=== PATIENT | male | born 1990 | race Caucasian/White ===

== ENCOUNTER 2016-06-06 17:34 | Emergency (ER) | payer OTHER | END 2016-06-06 19:10 | disposition left against medical advice (07) | LOC: UCCORT 17:34 | DX: R50.9 Fever, unspecified (principal); Z53.29 Procedure and treatment not carried out because of patient's decision for other reasons ==

== ENCOUNTER 2016-08-22 09:40 | Emergency (ER) | payer OTHER ==
[2016-08-22 11:06] VITALS: BP 100/45
[2016-08-22] MEDS ORDERED: Acetaminophen TAB* 325 MG PO ONE (11:08)
--- NOTE | 2016-08-22 11:45 | UC ---
FLU HPI - HPI Summary HPI Summary: YESTERDAY HAD HEADACHE FEVER BODY ACHES SORE THROAT. NO FLU SHOT THIS YEAR. 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 Severity Currently: Moderate Severity Initially: Moderate Associated Signs & Symptoms: Positive: Fever, F/C, Myalgia, Cough, Sore Throat, Headache Related Hx: Possible Flu/Infectious Exposure - Allergy/Home Medications Allergies/Adverse Reactions: Allergies Allergy/AdvReac Type Severity Reaction Status Date / Time Pollen Extract Allergy Congestion Verified 08/22/16 10:57 Home Medications: Home Medications Acetaminophen 1,000 mg PO ONCE PRN 08/22/16 [History Confirmed 08/22/16] Ibuprofen TAB* [Advil TAB*] 1,200 mg PO ONCE PRN 08/22/16 [History Confirmed ] PMH/Surg Hx/FS Hx/Imm Hx Previously Healthy: Yes Cardiovascular History Of: Reports: Cardiac Disorders - pericarditis in May GI/ History Of: Reports: Ulcer - peptic - Surgical History Surgical History: Yes Surgery Procedure, Year, and Place: T&A - Family History Known Family History: Positive: Respiratory Disease - Social History Occupation: Employed Full-time Lives: With Family Alcohol Use: None Substance Use Type: Cocaine, Heroin, Marijuana Substance Use Comment - Amount & Last Used: occasional use- but not since May- on probation Smoking Status (MU): Former Smoker Type: Cigarettes Amount Used/How Often: 1/2 pack daily Have You Smoked in the Last Year: Yes When Did the Patient Quit Smoking/Using Tobacco: May 2015 Household Exposure Type: Cigarettes - Immunization History Most Recent Tetanus Shot: unknown Review of Systems Constitutional: Fever, Chills, Fatigue Skin: Negative Eyes: Negative ENT: Sore Throat, Nasal Discharge Respiratory: Cough Cardiovascular: Negative Gastrointestinal: Negative Genitourinary: Negative Motor: Negative Neurovascular: Negative Musculoskeletal: Myalgia Neurological: Negative Psychological: Negative All Other Systems Reviewed And Are Negative: Yes Physical Exam Triage Information Reviewed: Yes Appearance: No Pain Distress, Well-Nourished, Ill-Appearing Vital Signs: Initial Vital Signs Temp 100 F 08/22/16 11:00 Pulse 100 08/22/16 11:00 Resp 16 08/22/16 11:00 BP 100/45 08/22/16 11:00 Pulse Ox 99 08/22/16 11:00 Vital Signs Reviewed: Yes Eye Exam: Normal ENT Exam: Normal ENT: Positive: Normal ENT inspection, Hearing grossly normal, Pharynx normal, TMs normal Dental Exam: Normal Neck exam: Normal Neck: Positive: Supple, Nontender, No Lymphadenopathy Respiratory Exam: Normal Respiratory: Positive: Chest non-tender, Lungs clear, Normal breath sounds, No respiratory distress, No accessory muscle use Cardiovascular Exam: Normal Cardiovascular: Positive: RRR, No Murmur, Pulses Normal Abdominal Exam: Normal Musculoskeletal Exam: Normal Musculoskeletal: Positive: Strength Intact, ROM Intact Neurological Exam: Normal Psychological Exam: Normal Psychological: Positive: Normal Response To Family Skin Exam: Normal Flu Course/Dx - Differential Dx/Diagnosis Differential Diagnosis/HQI/PQRI: RSV, Upper Respiratory Infection Provider Diagnoses: INFLUENZA Discharge - Discharge Plan Condition: Stable Disposition: HOME Prescriptions: Oseltamivir CAP* [Tamiflu CAP*] 75 mg PO BID #10 cap Patient Education Materials: Influenza (ED) Forms: *Work Release Referrals: Bryan Graves DO [Primary Care Provider] -
== END 2016-08-22 11:54 | disposition home or self-care (01) ==
LOC: UCCORT 09:40
DX: J11.1 Influenza due to unidentified influenza virus with other respiratory manifestations (principal); Z87.891 Personal history of nicotine dependence
CPT/HCPCS: 87502; 99212; A9270-GY; G0463

== ENCOUNTER 2017-03-03 08:23 | Emergency (ER) | payer OTHER ==
[2017-03-03 08:44] VITALS: BP 137/76
--- NOTE | 2017-03-03 09:07 | UC ---
Respiratory Complaint HPI - HPI Summary HPI Summary: cough x 7 days + chest congestion , productive cough , yellow sputum chest tightness and pain with coughing ,, + runny nose, pnd fever and chills - History of Current Complaint Chief Complaint: UCRespiratory Stated Complaint: STUFFY RUNNY NOSE COUGH SORE THROAT Time Seen by Provider: 03/03/17 08:51 Hx Obtained From: Patient Onset/Duration: Gradual Onset, Lasting Weeks - 1, Still Present Timing: Constant Severity Initially: Moderate Severity Currently: Moderate Character: Cough: Productive - yellow Aggravating Factors: Exertion, Deep Breaths Alleviating Factors: Nothing Associated Signs And Symptoms: Positive: Fever, Chills, Pleuritic Chest Pain, URI, Nasal Congestion. Negative: Dyspnea, Wheezing, Calf Pain - Allergies/Home Medications Allergies/Adverse Reactions: Allergies Allergy/AdvReac Type Severity Reaction Status Date / Time Pollen Extract Allergy Congestion Verified 03/03/17 08:37 Home Medications: Home Medications [id number] [Vicks Dayquil/Nyquil Frida] 1 liq PO BID PRN 05/19 [History Confirmed 03/03/17] PMH/Surg Hx/FS Hx/Imm Hx - Additional Past Medical History Additional PMH: pericarditis - Surgical History Surgical History: Yes Surgery Procedure, Year, and Place: T&A - Family History Known Family History: Positive: None, Respiratory Disease - Social History Alcohol Use: None Substance Use Type: None Substance Use Comment - Amount & Last Used: denies Smoking Status (MU): Light Every Day Tobacco Smoker Type: Cigarettes Amount Used/How Often: 2-3 Have You Smoked in the Last Year: Yes When Did the Patient Quit Smoking/Using Tobacco: May 2015 Household Exposure Type: Cigarettes - Immunization History Most Recent Influenza Vaccination: not this season Most Recent Tetanus Shot: unknown Review of Systems Constitutional: Fever, Chills, Fatigue Skin: Negative Eyes: Negative ENT: Nasal Discharge Respiratory: Negative Cardiovascular: Negative Gastrointestinal: Negative Genitourinary: Negative Motor: Negative Is Patient Immunocompromised?: No All Other Systems Reviewed And Are Negative: Yes Physical Exam Triage Information Reviewed: Yes Appearance: Well-Appearing, No Pain Distress, Well-Nourished Vital Signs: Initial Vital Signs Temp 100.6 F 03/03/17 08:39 Pulse 81 03/03/17 08:39 Resp 18 03/03/17 08:39 BP 137/76 03/03/17 08:39 Pulse Ox 99 03/03/17 08:39 Vital Signs Reviewed: Yes Eyes: Positive: Conjunctiva Clear ENT: Positive: Normal ENT inspection, Hearing grossly normal, Pharynx normal, Nasal congestion, Nasal drainage Neck: Positive: Supple, Nontender, No Lymphadenopathy Respiratory: Positive: Chest non-tender, Lungs clear, Normal breath sounds Cardiovascular: Positive: RRR, No Murmur, Pulses Normal Skin Exam: Normal UC Diagnostic Evaluation - Laboratory O2 Sat by Pulse Oximetry: 99 Respiratory Course/Dx - Differential Dx/Diagnosis Provider Diagnoses: Bronchitis Discharge - Discharge Plan Condition: Stable Disposition: HOME Prescriptions: Azithromycin TAB* [Zithromax TAB (Z-JO ANN) 250 mg #6 tabs] 2 tab PO .TODAY, THEN 1 DAILY #1 jo ann Guaifenesin-Codeine [Cheratussin AC] 10 ml PO Q8H PRN #100 ml MDD 30 ML PRN Reason: Cough Patient Education Materials: Acute Bronchitis (ED) Forms: *School Release Referrals: Bryan Graves DO [Primary Care Provider] - 7 Days
== END 2017-03-03 09:15 | disposition home or self-care (01) ==
LOC: UCCORT 08:23
DX: J40 Bronchitis, not specified as acute or chronic (principal); J30.1 Allergic rhinitis due to pollen; F17.210 Nicotine dependence, cigarettes, uncomplicated
CPT/HCPCS: 99212; G0463

== ENCOUNTER 2018-01-03 17:09 | Emergency (ER) | payer OTHER ==
--- OUTSIDE RECORDS SUMMARY | 2018-01-03 17:18 | XMS REPORT ---
:1990 External Reference #:[id number] Author Organization [facility] Address [address], [address] [place] [address] Phone [phone] Care Team Providers Name Role Phone Beulah Puente MD, PHD Care Team Information Automotive Consultant Unavailable Beulah Puente MD, PHD Primary Care Physician Unavailable Payers Type Date Identification Numbers Payment Provider Subscriber Commercial Policy Number: [id number] Neftali Ross PayID: [id number] [address] [address] [place] [address] Problems Date Description Provider Status Onset: 08/19/2017 Electrocardiogram abnormal Beulah Puente MD, PHD Active Onset: 08/19/2017 Acute hypokalemia Beulah Puente MD, PHD Active Onset: 08/19/2017 Malaise and fatigue Beulah Puente MD, PHD Active Onset: 08/20/2017 Acute pericarditis, unspecified Alvin Adames Active MN[place], [facility] Onset: 08/19/2017 Adjustment disorder with anxious Beulah Puente MD, PHD Active mood Onset: 08/19/2017 Dysthymic disorder Beulah Puente MD, PHD Active Onset: 08/19/2017 Vitamin D deficiency Beulah Puente MD, PHD Active Onset: 09/29/2017 Low back pain Beulah Puente MD, PHD Active Onset: 09/29/2017 Beulah Puente MD, PHD Active Onset: 10/13/2017 Substance abuse counseling Beulah Puente MD, PHD Active Onset: 10/13/2017 Sciatica Beulah Puente MD, PHD Active Onset: 10/26/2017 Cellulitis of left upper limb Beulah Puente MD, PHD Active Onset: 10/26/2017 Elevated blood-pressure reading Beulah Puente MD, PHD Active without diagnosis of hypertension Onset: 10/26/2017 Smokes tobacco daily Beulah Puente MD, PHD Active Onset: 10/26/2017 Tachycardia Beulah Puente MD, PHD Active Onset: 10/26/2017 Immunization Beulah Puente MD, PHD Active Onset: 12/27/2017 Cellulitis Beulah Puente MD, PHD Active Onset: 12/27/2017 Methicillin resistant Beulah Puente MD, PHD Active Staphylococcus aureus Family History Date Family Member(s) Problem(s) Comments Father No Current Problems Mother No Current Problems Maternal grandmother with ischemic cardiomyopathy and ICD (Gary Ross). Social History Type Date Description Comments Lives With Mother Diet Patient follows no dietary restrictions Occupation Currently Working ADL's/IADL's Independent with all ADL's Cigarette Use currently smokes 1/2 Pack Daily ETOH Use Denies alcohol use Recreational Drug Use HX Of Drug Or Alcohol Abuse PT WOULD NOT CLARIFY Smoking Light tobacco smoker (10 or fewer cigarettes/day) Daily Caffeine Current Caffeine User Allergies, Adverse Reactions, Alerts Date Description Reaction Status Severity Comments 05/21/2016 Pollen active Medications Medication Date Status Form Strength Qnty SIG Indications Ordering Provider Sulfamethoxazole/ 12/27/ Active Tablets 800-160mg 14tab 1 tab by L03.90 Rosa Puente 2017 s mouth Beulah, twice a , PHD day after meals Hibiclens 12/27/ Active Liquid 4% 750ml use on Z86.14 2017 all skin Beulah, as body , PHD wash once and as needed. Nicotrol NS 10/26/ Active Solution 10mg/ml 40ml 1 every 4 Z72.0 2017 hours as Beulah, needed , PHD Trazodone HCL 10/26/ Active Tablets 100mg 30tab 1 tab by F43.22 2017 s mouth at Beulah, bedtime , PHD as needed for sleep Hydrocodone-Aceta 10/26/ Active Tablets 7.5-325mg 5tabs 1 tab by M54.42 Kwame, minophen 2018 mouth at Beulah, bedtime MD, PHD as needed for pain Cyclobenzaprine 09/29/ Active Tablets 5mg 30tab 1-2 tab M46.40 Kwame, HCL 2018 s by mouth Beulah, at MD, PHD bedtime as needed for muscle Zantac 150 09/29/ Active Tablets 150mg 60tab 1 tab by M54.5 Kwame, Maximum Strength 2017 s mouth Beulah, twice a MD, PHD day as needed with the Naproxen to protect stomach Potassium 08/20/ Active Tablets ER 20Meq 30tab 1 pill David[place] Chloride ER 2018 s twice a , if Ángel Chawla, needed FACC for weakness. Isle-3 CF 08/19/ Active Capsules 1000mg 60cap 1 cap by F43.22 Kwame, 2018 s mouth Beulah, twice a MD, PHD day with meals D3 Maximum 08/19/ Active Capsules 5000Unit 90cap 1 cap by F43.22 Kwame , Strength 2017 s mouth Beulah, every day MD, PHD with food B12 Fast Dissolve 08/19/ Active Tablets 5000mcg 90tab 1 tab by F43.22 Kwame, 2018 Dispers s mouth Beulah, every day , PHD Cephalexin 10/26/ Hx Tablets 500mg 14tab 1 tab by L03.114 Kwame, 2017 - s mouth Beulah, 12/27/ twice a MD, PHD 2017 day Mobic 10/13/ Hx Tablets 15mg 14tab 1 by M54.5 Kwame, 2018 - s mouth Beulah, 10/26/ once a MD, PHD 2017 day Naprosyn 09/29/ Hx Tablets 500mg 30tab one by M54.5 Kwame, 2018 - s mouth Beulah, 10/13/ twice a MD, PHD 2017 day as needed No Active 08/19/ Hx Unknown Medications 2017 - 2017 Nac 600 08/19/ Hx Capsules 600mg 90cap 1 cap by F43.22 Kwame, 2018 s mouth Beulah, every day , PHD Chromium 08/19/ Hx Tablets 1000mcg 90tab 1 tab by F43.22 Kwame, 2018 s mouth Beulah, every day MD, PHD every morning Trazodone HCL 08/19/ Hx Tablets 50mg 60tab 1-2 tab F34.1 Kwame 2018 - s by mouth Beulah, 10/26/ at , PHD 2018 bedtime as needed for sleep. Indomethacin / Hx Capsules 50mg 1 po bid Unknown 0000 - 2017 Vital Signs Date Vital Result Comment 12/29/2017 BP Systolic 125 mmHg BP Diastolic 84 mmHg Body Temperature 99.4 F Heart Rate 87 /min Respiratory Rate 20 /min Height 73 inches 6'1" Weight 225.00 lb BMI (Body Mass Index) 29.7 kg/m2 BSA (Body Surface Area) 2.26 m2 [place] body weight in kilograms 83 O2 % BldC Oximetry 97 % 12/27/2017 BP Systolic 155 mmHg BP Diastolic 94 mmHg Body Temperature 98.8 F Heart Rate 69 /min Respiratory Rate 18 /min Height 73 inches 6'1" Weight 225.00 lb BMI (Body Mass Index) 29.7 kg/m2 BSA (Body Surface Area) 2.26 m2 [place] body weight in kilograms 83 O2 % BldC Oximetry 97 % 10/26/2017 BP Systolic 147 mmHg BP Diastolic 96 mmHg Body Temperature 107.0 F Heart Rate 107 /min Respiratory Rate 20 /min Height 73 inches 6'1" Weight 223.00 lb BMI (Body Mass Index) 29.4 kg/m2 BSA (Body Surface Area) 2.25 m2 [place] body weight in kilograms 83 O2 % BldC Oximetry 96 % 10/13/2017 BP Systolic 147 mmHg BP Diastolic 102 mmHg Body Temperature 99.0 F Heart Rate 122 /min Respiratory Rate 96 /min Height 73 inches 6'1" Weight 223.12 lb BMI (Body Mass Index) 29.4 kg/m2 BSA (Body Surface Area) 2.25 m2 [place] body weight in kilograms 83 O2 % BldC Oximetry 96 % 09/29/2017 BP Systolic 144 mmHg BP Diastolic 88 mmHg Body Temperature 98.6 F Heart Rate 96 /min Respiratory Rate 20 /min Height 73 inches 6'1" Weight 223.38 lb BMI (Body Mass Index) 29.5 kg/m2 BSA (Body Surface Area) 2.26 m2 [place] body weight in kilograms 83 O2 % BldC Oximetry 95 % 08/20/2017 BP Systolic Sitting Right Arm 128 mmHg BP Diastolic Sitting Right Arm 82 mmHg Heart Rate 76 /min Respiratory Rate 18 /min Weight 235.00 lb 08/19/2017 BP Systolic Lying Down Resting Right Arm 128 mmHg BP Diastolic Lying Down Resting Right Arm 85 mmHg Body Temperature 98.3 F Heart Rate 91 /min Respiratory Rate 18 /min Height 73 inches 6'1" Weight 232.50 lb BMI (Body Mass Index) 30.7 kg/m2 BSA (Body Surface Area) 2.29 m2 [place] body weight in kilograms 83 05/21/2016 BP Systolic Sitting Right Arm 117 mmHg BP Diastolic Sitting Right Arm 84 mmHg Heart Rate 57 /min Respiratory Rate 16 /min Height 72 inches 6'0" Weight 195.00 lb BMI (Body Mass Index) 26.4 kg/m2 BSA (Body Surface Area) 2.11 m2 [place] body weight in kilograms 81 Results Test Date Test Result H/L Range Note CBS W/Automated Diff 10/26/2017 White Blood Count 10.1 K/uL 3.4-10.5 1 Red Blood Count 5.11 M/uL 4.20-5.80 1 Hemoglobin 16.5 gm/dL 12.8-17.0 1 Hematocrit 46.5 % 38.0-48.0 1 Mean Cell Volume 91.0 fl 80.0-96.0 1 Mean Corpuscular HGB 32.3 pg 27.0-33.0 1 Mean Corpuscular HGB Conc 35.5 g/dL 31.7-36.0 1 Platelet Count 152 K/uL Low 155-360 1 Red Cell Distri Width SD 41.5 fl 36-51 1 Red Cell Distri Width %CV 12.8 % 11.6-15.8 1 Mean Platelet Volume 10.9 fL High 6.6-10.6 1 Neut% 70.4 % 33.0-73.0 1 Lymph % 20.0 % 20.0-42.0 1 [place] % 8.7 % 0.0-10.0 1 Eo% 0.8 % 0.0-6.6 1 Bas% 0.1 % 0.0-1.1 1 Neut# 7.14 K/uL High 1.8-7.0 1 Lymph # 2.03 K/uL 1.0-4.0 1 [place] # 0.88 K/uL High 0.0-0.8 1 Eos # 0.08 K/uL 0.0-0.5 1 Baso # 0.01 K/uL 0.0-0.1 1 Comprehensive Metabolic Panel 10/26/2017 Glucose 148 mg/dL High 74-106 1 BUN 16 mg/dL 7-18 1 Creatinine 1.0 mg/dL 0.6-1.3 1 Glom Filtration Rate, Estimate >60 mL/min >60 1 If >60 mL/min >60 1, 2 BUN/Creat 16.0 ratio 1 Sodium 139 mmol/L 136-145 1 Potassium 3.8 mmol/L 3.5-5.1 1 Chloride 104 mmol/L 98-107 1 Carbon Dioxide 25 mmol/L 21-32 1 Anion Gap 10 mEq/L 8-16 1 Calcium 8.5 mg/dL 8.5-10.1 1 Total Protein 7.8 g/dL 6.4-8.2 1 Albumin 3.9 g/dL 3.4-5.0 1 Globulin 3.9 g/dL 1.9-4.3 1 Alb/Glob 1.0 ratio 1 Bilirubin,Total 0.3 mg/dL 0.2-1.0 1 Sgot/Ast 13 U/L Low 15-37 1, 3 SGPT/Alt 28 U/L 12-78 1 Alkaline Phosphatase 59 U/L 45-117 1 Glycohemoglobin A1c 10/26/2017 Glycohemoglobin (A1c) 5.4 % 4.2-6.3 1, 4 eAG 108 mg/dL 1 Lyme Igm (Reflex 10/26/2017 Lyme Disease < 0.80 index 0.00-0.79 1, 5 Western Blot) Antibody,QT,Igm Laboratory test 10/26/2017 Treponema Antibody Negative Negative 1, 6 finding [place] NT-proBNP 9.0 pg/mL <125 1 D-Dimer, Quantitative < 0.27 ug/mL 1, 7 Slide Review 10/26/2017 Slide Review . 1 Basic Metabolic Panel 08/20/2017 Glucose 135 mg/dL High 74-106 8 BUN 9 mg/dL 7-18 8 Creatinine 1.1 mg/dL 0.6-1.3 8 Glom Filtration Rate, Estimate >60 mL/min >60 8 If >60 mL/min >60 8, 9 BUN/Creat 8.1 ratio 8 Sodium 135 mmol/L Low 136-145 8 Potassium 4.8 mmol/L 3.5-5.1 8 Chloride 101 mmol/L 98-107 8 Carbon Dioxide 27 mmol/L 21-32 8 Anion Gap 7 mEq/L Low 8-16 8 Calcium 9.1 mg/dL 8.5-10.1 8 Blood monocytes 08/17/2017 Blood monocytes 0.82 High 0.0-0.8 automated count automated count (number/volume) (number/volume) Chloride SerPl-sCnc 08/17/2017 [facility]loride [facility] 112 High 98-107 Blood leukocytes 08/17/2017 Blood leukocytes 7.8 3.4-10.5 automated count automated count (number/volume) (number/volume) Blood hemoglobin 08/17/2017 Blood hemoglobin 15.2 12.8-17.0 measurement measurement (mass/volume) (mass/volume) Blood erythrocytes 08/17/2017 Blood erythrocytes 4.71 4.20-5.80 automated count automated count (number/volume) (number/volume) Eosinophil/leuk NFr 08/17/2017 Eosinophil/leuk NFr 1.8 0.0-6.6 Bld Auto Bld Auto Lymphocytes/leuk NFr 08/17/2017 Lymphocytes/leuk 30.0 20.0-42.0 Bld Auto NFr Bld Auto Monocytes/leuk NFr 08/17/2017 Monocytes/leuk NFr 10.5 High 0.0-10.0 Bld Auto Bld Auto Neutrophils # Bld 08/17/2017 Neutrophils # Bld 4.47 1.8-7.0 Auto Auto Neutrophils/leuk NFr 08/17/2017 Neutrophils/leuk 57.3 33.0-73.0 Bld Auto NFr Bld Auto Potassium [facility] 08/17/2017 Potassium 4.8 3.5-5.1 [facility] RDW RBC Auto 08/17/2017 RDW RBC Auto 45.0 36-51 RDW RBC Auto-Rto 08/17/2017 RDW RBC Auto-Rto 13.3 11.6-15.8 Serum carbon dioxide 08/17/2017 Serum carbon 25 21-32 measurement dioxide measurement Serum or plasma 08/17/2017 Serum or plasma 8.0 Low 8.5-10.1 calcium measurement calcium measurement (mass/volume) (mass/volume) Serum or plasma 08/17/2017 Serum or plasma 376 High 39-308 creatine kinase creatine kinase measurement (enzym measurement (enzymatic activity/volume) Serum or plasma 08/17/2017 Serum or plasma 0.8 0.6-1.3 creatinine creatinine measurement measurement (mass/volum (mass/volume) Serum or plasma 08/17/2017 Serum or plasma 89 74-106 glucose measurement glucose measurement (mass/volume) (mass/volume) Serum or plasma 08/17/2017 Serum or plasma 0.092 troponin i.cardiac troponin i.cardiac measurement (ma measurement (mass/volume) Serum or plasma urea 08/17/2017 Serum or plasma 6 Low 7-18 nitrogen measurement urea nitrogen (mass/vo measurement (mass/volume) Serum sodium 08/17/2017 Serum sodium 141 136-145 measurement measurement TSH SerPl-aCnc 08/17/2017 TSH SerPl-aCnc 1.13 0.30-4.20 Leukocyte esterase 08/17/2017 Leukocyte esterase Negative Negative Ur Ql Strip.auto Ur Ql Strip.auto Ketones Ur 08/17/2017 Ketones Ur Negative Negative Strip.auto-mCnc Strip.auto-mCnc Color Ur 08/17/2017 Color Ur Yellow Yellow Nitrite Ur Ql 08/17/2017 Nitrite Ur Ql Negative Negative Strip.auto Strip.auto Prot Ur 08/17/2017 Prot Ur Negative Negative Strip.auto-mCnc Strip.auto-mCnc Screening urine 08/17/2017 Screening urine Negative barbiturate barbiturate detection detection Specific gravity of 08/17/2017 Specific gravity of 1.010 1.010-1.030 Urine by Automated Urine by Automated test strip test strip Urine amphetamines 08/17/2017 Urine amphetamines Negative detection by detection by screening method screening method Urine appearance 08/17/2017 Urine appearance Clear Clear determination determination Urine 08/17/2017 Urine Negative benzodiazepines benzodiazepines measurement by measurement by screening met screening method (mass/volume) Urine 08/17/2017 Urine Positive High benzoylecgonine benzoylecgonine detection by detection by screening metho screening method Urine cannabinoids 08/17/2017 Urine cannabinoids Negative detection by detection by screening method screening method Urine drug screen 08/17/2017 Urine drug screen * comment comment interpretation interpretation Urine glucose 08/17/2017 Urine glucose Negative Negative measurement by measurement by automated test strip automated test strip (mass/volume) Urine hemoglobin 08/17/2017 Urine hemoglobin Negative Negative detection by detection by automated test strip automated test strip Urine methadone 08/17/2017 Urine methadone Negative screen screen Urine opiates 08/17/2017 Urine opiates Negative detection by detection by screening method screening method Urine total 08/17/2017 Urine total Negative Negative bilirubin detection bilirubin detection by automated test by automated test strip Basophils/leuk NFr 08/17/2017 Basophils/leuk NFr 0.4 0.0-1.1 Bld Auto Bld Auto BUN/Creat SerPl 08/17/2017 BUN/Creat SerPl 7.5 Automated 08/17/2017 Automated 92.8 80.0-96.0 erythrocyte mean erythrocyte mean corpuscular volume corpuscular volume Automated 08/17/2017 Automated 34.8 31.7-36.0 erythrocyte mean erythrocyte mean corpuscular corpuscular hemoglobin hemoglobin concentration measurement (mass/volume) Automated 08/17/2017 Automated 32.3 27.0-33.0 erythrocyte mean erythrocyte mean corpuscular corpuscular hemoglobin hemoglobin (mass per erythrocyte) Automated blood 08/17/2017 Automated blood 10.5 6.6-10.6 platelet mean volume platelet mean measurement volume measurement Automated blood 08/17/2017 Automated blood 268 155-360 platelet count platelet count Automated blood 08/17/2017 Automated blood 2.34 1.0-4.0 lymphocyte count lymphocyte count (number/volume) (number/volume) Automated blood 08/17/2017 Automated blood 43.7 38.0-48.0 hematocrit (volume hematocrit (volume fraction) fraction) Urobilinogen Ur 08/17/2017 Urobilinogen Ur 0.2 0.2-1.0 Strip-aCnc Strip-aCnc pH Ur Strip.auto 08/17/2017 pH Ur Strip.auto 7.5 6.5-7.5 Aot Request 08/17/2017 Aot Request Test(s) 10, 11 added Tests to be added: TSH with reflex <SEE NOTE> 10, 12 * Miscellaneous studies 08/17/2017 * Miscellaneous studies Test(s) added (set) (set) Anion Gap SerPl-sCnc 08/17/2017 Anion Gap SerPl-sCnc 4 Low 8-16 Automated blood 08/17/2017 Automated blood 0.03 0.0-0.1 basophil count basophil count (count/volume) (count/volume) Automated blood 08/17/2017 Automated blood 0.14 0.0-0.5 eosinophil count eosinophil count Alt SerPl-cCnc 08/16/2017 Alt SerPl-cCnc 52 12-78 Serum or plasma 08/16/2017 Serum or plasma 1.8 1.8-2.4 magnesium measurement magnesium measurement (mass/volume (mass/volume) Serum or plasma total 08/16/2017 Serum or plasma total 0.2 0.2-1.0 bilirubin measurement bilirubin measurement (mass/ (mass/volume) Serum or plasma protein 08/16/2017 Serum or plasma protein 8.2 6.4-8.2 measurement measurement (mass/volume) (mass/volume) Serum or plasma 08/16/2017 Serum or plasma 28 15-37 aspartate aspartate aminotransferase aminotransferase measure measurement (enzymatic activity/volume) Serum or plasma 08/16/2017 Serum or plasma 48 45-117 alkaline phosphatase alkaline phosphatase measurement ( measurement (enzymatic activity/volume) Serum or plasma albumin 08/16/2017 Serum or plasma albumin 3.5 3.4-5.0 measurement measurement (mass/volume) (mass/volume) Globulin Ser Calc-mCnc 08/16/2017 Globulin Ser Calc-mCnc 4.7 High 1.9-4.3 Albumin/Glob SerPl 08/16/2017 Albumin/Glob SerPl 0.7 1 RO3.O,LO3.114,FRANCO.O 2 Note: Persistent reduction for 3 months or more in an eGFR <60 mL/min/1.73 m2 defines CKD. Patients with eGFR values >/=60 mL/min/1.73 m2 may also have CKD if evidence of persistent proteinuria is present. The original MDRD equation for estimated GFR is not valid for patients less than 18 years of age. Additional information may be found at www.kdoqi.org. 3 Values below the stated reference ranges of AST and ALT can be seen in normal populations. Clinical correlation is suggested. 4 Elevated levels of HbA1c suggest the need for more aggressive treatment of glycemia. The [place] [employer] recommends that a primary goal of therapy should be a HbA1c of <7% and that physicians should re-evaluate the treatment regimen in patients with HbA1c values consistently >8%. 5 Negative <0.80 Equivocal 0.80 - 1.19 Positive >1.19 IgM levels may peak at 3-6 weeks post infection, then gradually decline. Performed at: RN - [facility] [address] [id number] Computer Animator: Tanja Bowers MD, Phone: [phone] 6 Performed at: [facility] [id number] Computer Animator: Hemanth Koroma MD, Phone: [phone] 7 <=0.49 ug/mL - Low likelihood of DIC, DVT or Pulmonary Embolism >0.49 ug/mL - Additional testing should be done to rule out DIC, DVT, or Pulmonary embolism as clinically indicated. ([facility] has established a 97.89% negative predictive value for thrombotic disease when a cutoff value of 0.5 ug/mL is used.) 8 NO DX 9 Note: Persistent reduction for 3 months or more in an eGFR <60 mL/min/1.73 m2 defines CKD. Patients with eGFR values >/=60 mL/min/1.73 m2 may also have CKD if evidence of persistent proteinuria is present. The original MDRD equation for estimated GFR is not valid for patients less than 18 years of age. Additional information may be found at www.kdoqi.org. 10 HYPOKALEMIA EKG CHANGES 11 Tests: TSH with reflex free T3/T4 Instructions: 12 TSH with reflex free T3/T4 Procedures Date CPT Code Description Status 08/20/2017 43851 EKG-Tracing And Report Completed 08/17/2017 57286 Echocardiogram Complete Completed 08/17/2017 18966 EKG Interpretation And Report Only Completed 05/21/2016 88090 EKG-Tracing And Report Completed 04/29/2016 06504 Echocardiogram Complete Completed 06/24/2006 81133 T & A, Age 12 Or Over Completed Encounters Type Date Location Provider CPT E/M Dx Office Visit 12/29/2017 11:45a [place], [address] Z86.14 Women's Health PHD L03.114 Office Visit 12/27/2017 2:00p [place], [address] L03.90 Women's Health PHD Z86.14 Office Visit 10/26/2017 11:30[place], [address] L03.114 Women's Health PHD R03.0 R94.31 F43.22 R00.0 M54.42 Z71.51 Z72.0 Office Visit 10/13/2017 11:45a Family [place], [address] M54.32 Women's Health PHD M54.5 R53.1 E55.9 F34.1 Z71.51 Office Visit 09/29/2017 11:30a Family Medicine [place], [address] M54.5 Women's Health PHD F43.22 Office Visit 08/20/2017 8:20a Cardiology Office Alvin Adames, 32927 R53.1 Ángel, [facility] R94.31 I30.9 Office Visit 08/19/2017 12:30p Family Medicine [place], [address] R94.31 Women's Health PHD R53.1 F43.22 F34.1 R53.83 E55.9 Office Visit 05/21/2016 10:00a Cardiology Office Flores Christyaidan, 18907 I30.9 MSN, [employer] Office Visit 07/02/2006 3:30p Operating Room Kyree Bishop M.D. 24489 474.11 Office Visit 06/29/2006 1:15p Operating Room Kyree Bishop M.D. 79156 998.11 Office Visit 06/18/2006 4:15p Operating Room Kyree Bishop M.D. 93056 474.11 Plan of Care 12/29/2017 - Beulah Puente MD, PHDZ86.14 Personal history of methicillin resis staph [id number] Cellulitis of left upper limbComments:Continue Bactrim DS for 10 daysSoak wound so continuesto drain until healed. use Hibicleans wash as directed. Don't use waterproof bandage, but covering and protecting with nicholas and coban wrap ok.
--- OUTSIDE RECORDS SUMMARY | 2018-01-03 17:19 | XMS REPORT ---
:1990 External Reference #:[id number] Author Organization [facility] Address [address], [address] [place] [address] Phone [phone] Care Team Providers Name Role Phone Beulah Puente MD, PHD Care Team Information Folding Machine Feeder Unavailable Beulah Puente MD, PHD Primary Care Physician Unavailable Payers Type Date Identification Numbers Payment Provider Subscriber Commercial Policy Number: [id number] Neftali Ross PayID: [id number] [address] [address] [place] [address] Problems Date Description Provider Status Onset: 08/19/2017 Electrocardiogram abnormal Beulah Puente MD, PHD Active Onset: 08/19/2017 Acute hypokalemia Beulah Puente MD, PHD Active Onset: 08/19/2017 Malaise and fatigue Beulah Puente MD, PHD Active Onset: 08/20/2017 Acute pericarditis, unspecified Alvin Adames Active [place], [facility] Onset: 08/19/2017 Adjustment disorder with anxious [...] MD, PHD Active Onset: 12/27/2017 Cellulitis Beulah uPente MD, PHD Active Onset: 12/27/2017 Methicillin resistant [...] if Ángel Chawla, needed FACC for weakness. [place]-3 CF 08/19/ Active Capsules 1000mg 60cap 1 [...] 2017 Vital Signs Date Vital Result Comment 12/27/2017 BP Systolic 155 mmHg BP Diastolic 94 mmHg Body Temperature 98.8 F Heart Rate 69 /min Respiratory Rate 18 /min Height 73 inches 6'1" Weight 225.00 lb BMI (Body Mass Index) 29.7 kg/m2 BSA (Body Surface Area) 2.26 m2 [place] body weight in kilograms 83 O2 % BldC Oximetry 97 % 10/26/2017 BP Systolic 147 mmHg BP Diastolic 96 mmHg Body Temperature 107.0 F Heart Rate 107 /min Respiratory Rate 20 /min Height 73 inches 6'1" Weight 223.00 lb BMI (Body Mass Index) 29.4 kg/m2 BSA (Body Surface Area) 2.25 m2 [place] body weight in kilograms 83 O2 % BldC Oximetry 96 % 10/13/2017 BP Systolic 147 mmHg BP Diastolic 102 mmHg Body Temperature 99.0 F Heart Rate 122 /min Respiratory Rate 96 /min Height 73 inches 6'1" Weight 223.12 lb BMI (Body Mass Index) 29.4 kg/m2 BSA (Body Surface Area) 2.25 m2 [place] body weight in kilograms 83 O2 % BldC Oximetry 96 % 09/29/2017 BP Systolic 144 mmHg BP Diastolic 88 mmHg Body Temperature 98.6 F Heart Rate 96 /min Respiratory Rate 20 /min Height 73 inches 6'1" Weight 223.38 lb BMI (Body Mass Index) 29.5 kg/m2 BSA (Body Surface Area) 2.26 m2 [place] body weight in kilograms 83 O2 % [...] kg/m2 BSA (Body Surface Area) 2.29 m2 [place] body weight in kilograms 83 05/21/2016 BP Systolic Sitting Right Arm 117 mmHg BP Diastolic Sitting Right Arm 84 mmHg Heart Rate 57 /min Respiratory Rate 16 /min Height 72 inches 6'0" Weight 195.00 lb BMI (Body Mass Index) 26.4 kg/m2 BSA (Body Surface Area) 2.11 m2 [place] body weight in kilograms 81 Results Test [...] 1 Lymph % 20.0 % 20.0-42.0 1 [place] % 8.7 % 0.0-10.0 1 Eo% 0.8 % 0.0-6.6 1 Bas% 0.1 % 0.0-1.1 1 Neut# 7.14 K/uL High 1.8-7.0 1 Lymph # 2.03 K/uL 1.0-4.0 1 [place] # 0.88 K/uL High 0.0-0.8 1 Eos [...] Treponema Antibody Negative Negative 1, 6 finding [place] NT-proBNP 9.0 pg/mL <125 1 D-Dimer, Quantitative [...] count (number/volume) (number/volume) Chloride SerPl-sCnc 08/17/2017 Chloride SerPl-sCnc 112 High 98-107 Blood leukocytes 08/17/2017 Blood [...] 33.0-73.0 Bld Auto NFr Bld Auto Potassium SerPl-sCnc 08/17/2017 Pot[facility] 4[facility]8 [facility].5[facility] RBC Auto 08/17/2017 RDW RBC Auto [...] for more aggressive treatment of glycemia. The [place] [employer] recommends that a primary goal of therapy should be a HbA1c of <7% and that physicians should re-evaluate the treatment regimen in patients with HbA1c values consistently >8%. 5 Negative <0.80 Equivocal 0.80 - 1.19 Positive >1.19 IgM levels may peak at 3-6 weeks post infection, then gradually decline. Performed at: - [facility] [address] [id number] [employer] Manager: Tanja Bowers MD, Phone: [phone] Performed at: - [facility] [address] [id number] [employer] Development Manager: Hemanth Koroma MD, Phone: [phone] <=0.49 ug/mL - Low likelihood of DIC, DVT or Pulmonary Embolism >0.49 ug/mL - Additional testing should be done to rule out DIC, DVT, or Pulmonary embolism as clinically indicated. ([facility] has established a 97.89% negative predictive value [...] Procedures Date CPT Code Description Status 08/20/2017 53258 EKG-Tracing And Report Completed 08/17/2017 54678 Echocardiogram Complete Completed 08/17/2017 65793 EKG Interpretation And Report Only Completed 05/21/2016 04223 EKG-Tracing And Report Completed 04/29/2016 68662 Echocardiogram Complete Completed 06/24/2006 47729 T & A, Age 12 Or Over Completed Encounters Type Date Location Provider CPT E/M Dx Office Visit 10/26/2017 [place], [address] L03.114 11:30a [facility] PHD R03.0 R94.31 F43.22 R00.0 M54.42 Z71.51 Z72.0 Office Visit 10/13/2017 11:45a [place], [address] M54.32 [facility] PHD M54.5 R53.1 E55.9 F34.1 Z71.51 Office Visit 09/29/2017 11:30a [place], [address] M54.5 [facility] PHD F43.22 Office Visit 08/20/2017 8:20a Cardiology Office Alvin Adames, [address] R53.1 Ángel, [facility] R94.31 I30.9 Office Visit 08/19/2017 12:30p [place], [address] R94.31 [facility] PHD R53.1 F43.22 F34.1 R53.83 E55.9 Office Visit 05/21/2016 10:00a Cardiology Office Flores Christy, 52391 I30.9 MSN, [employer] Office Visit 07/02/2006 3:30p Operating Room Kyree Bishop M.D. 09669 474.11 Office Visit 06/29/2006 1:15p Operating Room Kyree Bishop M.D. 86264 998.11 Office Visit 06/18/2006 4:15p Operating Room Kyree Bishop M.D. 62209 474.11 Plan of Care 12/27/2017 - Beulah Puente MD, PHDL03.90 Cellulitis, unspecifiedNew Medication:Sulfamethoxazole/Trimethoprim DS 800-160 mgFollow up:If pain in joint getting worse or not improving in a few days, call and may need imaging - MRSA can damage joints.Z86.14 Personal history of methicillin resis staph infectionNew Medication:Hibiclens 4 %
[2018-01-03 18:28] VITALS: BP 123/71
[2018-01-03] MEDS ORDERED: Clindamycin CAP* 150 MG PO ONE ×2 (18:56→18:58)
[2018-01-03] MEDS ORDERED: HYDROcodone/ACETAMIN 5-325 MG* 1 TAB PO ONE (18:56)
--- NOTE | 2018-01-03 19:46 | UC ---
Skin Complaint HPI - HPI Summary HPI Summary: 27-year-old male comes in with the complaint of rash. The patient has been on Bactrim for 7 days his last dose was this morning. He was placed on the Bactrim for a left forearm skin abscess that is MRSA positive. There was a rash at the site of the abscess now he has a diffuse rash on his chest arms or legs. No recent fevers. He states that his skin feels tender. His mastoids are tender to palpation. He has had diarrhea for one week. It is worsening over the last few days. No abdominal pain. The rash itches. - History of Current Complaint Chief Complaint: UCSkin Time Seen by Provider: 01/03/18 18:32 Stated Complaint: BILATERAL EAR & SKIN CONCERN Pain Intensity: 6 Pain Scale Used: 0-10 Numeric - Allergy/Home Medications Allergies/Adverse Reactions: Allergies Allergy/AdvReac Type Severity Reaction Status Date / Time MS Pollen Extract Allergy Congestion Verified 01/03/18 18:28 [Pollen Extract] Home Medications: Home Medications Ibuprofen TAB* [Motrin TAB* 600 MG] 600 mg PO ONCE 01/03/18 [History Confirmed 01/03/18] Review of Systems Constitutional: Other Skin: Rash - Diffuse blanching rash Eyes: Negative Respiratory: Negative Cardiovascular: Negative Gastrointestinal: Diarrhea Genitourinary: Negative, Vaginal/Penile Itching Neurovascular: Negative Musculoskeletal: Negative Neurological: Negative Psychological: Negative Is Patient Immunocompromised?: No All Other Systems Reviewed And Are Negative: Yes PMH/Surg Hx/FS Hx/Imm Hx - Additional Past Medical History Additional PMH: POSITIVE MRSA Other Endocrine History: NO DM Other Cardiovascular History: NO HTN - Surgical History Surgical History: Yes Surgery Procedure, Year, and Place: T&A - Family History Known Family History: Positive: Cardiac Disease, Respiratory Disease - Social History Alcohol Use: Rare Substance Use Type: None Substance Use Comment - Amount & Last Used: denies Smoking Status (MU): Light Every Day Tobacco Smoker Type: Cigarettes Amount Used/How Often: 5-6 cig Have You Smoked in the Last Year: Yes When Did the Patient Quit Smoking/Using Tobacco: May 2015 Household Exposure Type: Cigarettes - Immunization History Most Recent Influenza Vaccination: not this season Most Recent Tetanus Shot: unknown Physical Exam Triage Information Reviewed: Yes Appearance: Well-Appearing, No Pain Distress, Well-Nourished Vital Signs: Initial Vital Signs Temp 98.4 F 01/03/18 18:01 Pulse 86 01/03/18 18:01 Resp 16 01/03/18 18:01 BP 123/71 01/03/18 18:01 Pulse Ox 100 01/03/18 18:01 Vital Signs Reviewed: Yes Eye Exam: Normal ENT: Positive: Pharynx normal, Other - BOTH MASTOIDS ARE MILDLY TENDER TO PALPATION. Negative: Tonsillar swelling, Tonsillar exudate Neck: Positive: Supple, Nontender Respiratory: Positive: Chest non-tender, Lungs clear, Normal breath sounds Cardiovascular: Positive: RRR Abdomen Description: Positive: Nontender Musculoskeletal: Positive: Strength Intact, Other: - LEFT FOREARM HEALING SKIN ABSCESS. THERE IS SURROUNDING BLANCHING RASH Neurological Exam: Normal Psychological Exam: Normal Skin: Positive: rashes - DIFFUSE BLANCHING ERYTHEMATOUS RASH Course/Dx - Course Course Of Treatment: The rash may be due to a reaction to Bactrim. Stop taking the Bactrim. The abscess looks largely healed although it is still mildly swollen and minimally tender. Start clindamycin in case the MRSA abscess is still active. Stool sample pending to determine if the diarrhea is C. difficile. If the stool comes back positive C. difficile the patient will need to start on metronidazole. Blood work is pending to check white blood cells hemoglobin and platelets and liver function. We discussed if his condition got worse he is to get reevaluated in the emergency department. The patient is to contact his primary medical doctor tomorrow for follow-up. - Diagnoses Provider Diagnoses: RASH. DIARRHEA. MRSA SKIN ABSCESS Discharge - Sign-Out/Discharge Documenting (check all that apply): Patient Departure All imaging exams completed and their final reports reviewed: No Studies - Discharge Plan Condition: Stable Disposition: HOME Prescriptions: Clindamycin Cap(NF) [Clindamycin Cap 300 mg Cap(NF)] 300 mg PO Q6H #40 cap HYDROcodone/ACETAMIN 5-325 MG* [[place]ming 5-325 TAB*] 1 tab PO Q4H PRN #10 tab MDD 6 PRN Reason: Pain Patient Education Materials: MRSA (Methicillin-Resistant Staphylococcus Aureus ) (ED), Acute Diarrhea (ED), Acute Rash (ED) Referrals: Beulah Puente MD [Primary Care Provider] - Additional Instructions: FOLLOW UP WITH YOUR PRIMARY CARE DOCTOR. CALL TOMORROW TO ARRANGE FOLLOW UP. The rash may be due to a reaction from the antibiotic Bactrim. Stop the Bactrim. The rash also could be due to a continued infection with MRSA. Take the clindamycin as directed. We are getting a stool sample to determine if your Diarrhea is C. difficile. If you have C difficile you will need to start a different antibiotic. You have blood work results pending. Take Benadryl as needed for the itching. GO TO THE EMERGENCY DEPARTMENT FOR ANY WORSENING OF YOUR CONDITION; PAIN, FEVER , YOU FEEL ILL OR QUESTIONS OR CONCERNS. - Billing Disposition and Condition Condition: STABLE Disposition: Home
[2018-01-04 11:51] LABS: Hematocrit 52 % (42-52); Hemoglobin 17.8 g/dl (14.0-18.0); Mean Corpuscular HGB Conc 34 g/dl (31-36); Mean Corpuscular Hemoglobin 32 pg (27-31); Mean Corpuscular Volume 93 fL (80-94); Mean Platelet Volume 10.5 um3 (7.4-10.4); Platelet Count 152 10^3/ul (150-450); Red Blood Count 5.53 10^6/ul (4.00-5.40); Red Cell Distribution Width 13 % (10.5-15); White Blood Count 4.5 10^3/ul (3.5-10.8)
[2018-01-04 11:57] LABS: EGFR Non-African American 73.3 (>60)
[2018-01-04 12:26] LABS: ABS Basophils 0 10^3/ul (0-0.2); ABS Eosinophils 0.3 10^3/ul (0-0.6); ABS Monocytes 0.5 10^3/ul (0-0.8); ABS Neutrophils 2.7 10^3/ul (1.5-7.7); ABS Nucleated RBC 0 10^3/ul; Eosinophil % 7.2 % (0-6); Lymphocyte % 21.6 % (25-47); Nucleated Red Blood Cells % 0.4
== END 2018-01-03 19:24 | disposition home or self-care (01) ==
LOC: UCCORT 17:09
DX: L02.91 Cutaneous abscess, unspecified (principal); B95.62 Methicillin resistant Staphylococcus aureus infection as the cause of diseases classified elsewhere; R21 Rash and other nonspecific skin eruption; R19.7 Diarrhea, unspecified; F17.210 Nicotine dependence, cigarettes, uncomplicated; Z91.048 Other nonmedicinal substance allergy status
CPT/HCPCS: 36415; 80053; 85025; 86140; 99213; A9270-GY; G0463

== ENCOUNTER 2018-03-30 16:09 | Emergency (ER) | payer OTHER ==
[2018-03-30 16:30] VITALS: BP 143/73
--- NOTE | 2018-03-30 17:47 | UC ---
Throat Pain/Nasal Yoni HPI - HPI Summary HPI Summary: 27-year-old male presents with 3-4 day history of headache, nasal congestion, sinus pressure, sore throat, and productive cough for yellow sputum. Associated with some fatigue and feeling of being hot and cold. Describes headache as constant pressure within the frontal sinuses. Denies fever, ear pain , dizziness, vertigo, visual disturbances, photophobia, chest pain, shortness of breath, abdominal pain, nausea, or vomiting. - History of Current Complaint Chief Complaint: UCRespiratory Stated Complaint: COUGH,WATT X 3 DAYS Time Seen by Provider: 03/30/18 17:26 Hx Obtained From: Patient Onset/Duration: Gradual Onset, Lasting Days Severity: Moderate Pain Intensity: 6 Cough: Productive Associated Signs & Symptoms: Positive: Sinus Discomfort, Nasal Discharge. Negative: Dysphagia, Wheezing, Fever, Vomiting, Rash - Allergies/Home Medications Allergies/Adverse Reactions: Allergies Allergy/AdvReac Type Severity Reaction Status Date / Time No Known Allergies Allergy Verified 03/30/18 16:27 PMH/Surg Hx/FS Hx/Imm Hx Previously Healthy: Yes - Denies significant PMH - Surgical History Surgical History: Yes Surgery Procedure, Year, and Place: T&A - Family History Known Family History: Positive: Cardiac Disease, Respiratory Disease - Social History Occupation: Employed Full-time Lives: With Family Alcohol Use: Rare Substance Use Type: None Substance Use Comment - Amount & Last Used: denies Smoking Status (MU): Light Every Day Tobacco Smoker Type: Cigarettes Amount Used/How Often: 5-6 cig Have You Smoked in the Last Year: Yes When Did the Patient Quit Smoking/Using Tobacco: May 2015 Household Exposure Type: Cigarettes - Immunization History Most Recent Influenza Vaccination: not this season Most Recent Tetanus Shot: unknown Review of Systems All Other Systems Reviewed And Are Negative: Yes Constitutional: Positive: Fatigue. Negative: Fever Skin: Negative: Rash Eyes: Negative: Blurred Vision, Diplopia, Drainage, Eye Redness, Photophobia ENT: Positive: Sore Throat, Nasal Discharge, Sinus Congestion, Sinus Pain/ Tenderness. Negative: Ear Ache Respiratory: Positive: Cough. Negative: Shortness Of Breath Cardiovascular: Negative: Palpitations, Chest Pain Gastrointestinal: Negative: Abdominal Pain, Vomiting, Nausea Neurological: Positive: Headache Is Patient Immunocompromised?: No Physical Exam - Summary Physical Exam Summary: GENERAL APPEARANCE: Well developed, well nourished, alert and cooperative, and appears to be in no acute distress. EYES: PERRL, EOM intact. Vision is grossly intact. Conjunctiva clear without discharge. EARS: External auditory canals and tympanic membranes clear, hearing grossly intact. NOSE: Nasal congestion without discharge. THROAT: Oral cavity and pharynx normal. No inflammation, swelling, exudate, or lesions. Tonsils surgically absent. Teeth and gingiva in good general condition. NECK: Neck supple, non-tender without lymphadenopathy. CARDIAC: Normal S1 and S2. No S3, S4 or murmurs. Rhythm is regular. There is no peripheral edema, cyanosis or pallor. Extremities are warm and well perfused. Capillary refill is less than 2 seconds. LUNGS: Clear to auscultation and percussion without rales, rhonchi, wheezing or diminished breath sounds. ABDOMEN: Positive bowel sounds. Soft, nondistended, nontender. No guarding or rebound. No masses or hepatosplenomegally. NEUROLOGICAL: Awake, alert, oriented x 4. SKIN: Skin normal color, texture and turgor with no lesions or eruptions. Triage Information Reviewed: Yes Vital Signs: Initial Vital Signs Temp 99.8 F 03/30/18 16:27 Pulse 92 03/30/18 16:27 Resp 17 03/30/18 16:27 BP 143/73 03/30/18 16:27 Pulse Ox 97 03/30/18 16:27 Vital Signs Reviewed: Yes Throat Pain/Nasal Course/Dx - Course Course Of Treatment: 27-year-old male presents with 3-4 day history of headache , nasal congestion, sinus pressure, sore throat, and productive cough for yellow sputum. Associated with some fatigue and feeling of being hot and cold. Describes headache as constant pressure within the frontal sinuses. Denies fever, ear pain, dizziness, vertigo, visual disturbances, photophobia, chest pain, shortness of breath, abdominal pain, nausea, or vomiting. History and exam consistent with a viral URI. Recommend symptomatic treatment. He is to follow up with PCP in 7 days if symptoms persist. Warning symptoms reviewed. Verbalizes understanding and agrees with POC. - Differential Dx/Diagnosis Differential Diagnosis/HQI/PQRI: Influenza, Sinusitis, URI Provider Diagnosis: Upper respiratory infection with cough and congestion, Elevated blood pressure reading Discharge - Sign-Out/Discharge Documenting (check all that apply): Patient Departure All imaging exams completed and their final reports reviewed: No Studies - Discharge Plan Condition: Stable Disposition: HOME Prescriptions: Benzonatate CAP* [Tessalon 100 MG CAP*] 100 mg PO TID PRN #30 cap PRN Reason: Cough Fluticasone NASAL SPRAY 50MCG* [Flonase NASAL SPRAY 50MCG*] 2 spray BOTH NARES DAILY #1 btl Patient Education Materials: Upper Respiratory Infection (ED) Referrals: Beulah Puente MD [Primary Care Provider] - 7 Days (If symptoms persist.) Additional Instructions: Your history and exam are consistent with viral upper respiratory infection. Viral infections do not respond to antibiotics and typically run their course over 7-10 days. Use a saline rinse kit such as Neti Pot or NeilMed at least twice a day. Start fluticasone nasal spray 2 sprays each nostril once a day. Take an over the counter decongestant such as Sudafed according to directions as needed for nasal congestion. Take acetaminophen (Tylenol) or ibuprofen (Advil, Motrin) according to directions as needed for fever or pain. Take Tessalon Perles 1 cap every 8 hours as needed for cough. I would recommend that you stop smoking as this can worsen symptoms of an upper respiratory infection. Follow-up with your primary care provider in 7 days if symptoms persist. Your blood pressure was elevated in the clinic today. It is recommended that you have this rechecked by your primary care provider within the next 4 weeks. Seek immediate medical attention if you have a persistent fever greater than 100.5 F despite taking acetaminophen or ibuprofen, you are unable to swallow, has difficulty breathing, or have any worsening of symptoms. - Billing Disposition and Condition Condition: STABLE Disposition: Home
== END 2018-03-30 17:53 | disposition home or self-care (01) ==
LOC: UCCORT 16:09
DX: J06.9 Acute upper respiratory infection, unspecified (principal); R05 Cough; J34.89 Other specified disorders of nose and nasal sinuses; R03.0 Elevated blood-pressure reading, without diagnosis of hypertension; F17.210 Nicotine dependence, cigarettes, uncomplicated
CPT/HCPCS: 99212; G0463